=== PATIENT | female | born 1995 | race African-American/Black ===

== ENCOUNTER 2018-02-17 11:49 | Emergency (ER) | payer SELFPAY ==
[~2018-02-17 11:49] MED LIST: LURA40 PO; TRAZ50TA12 PO
[2018-02-17 11:52] VITALS: BP 111/59; PULSE 97; RESP 16; TEMP 98.3; O2SAT 99
--- NOTE | 2018-02-17 12:22 | PD ---
HPI Chief Complaint: Cold / Flu Symptoms Time Seen by Provider: 12:11 Travel History International Travel<30 days: No Contact w/Intl Traveler<30days: No Traveled to known affect area: No History of Present Illness HPI 22yo F with no PMH presents to the ED with c/o throat pain, left sided headache for 2 days. Also has some cough, nausea, vomiting. Feels warm but no fever. + Generalized weakness. Denies any chest pain, sob, abdominal pain, focal weakness or numbness. Everyone at home is sick. Took theraflu this morning with little relief. PFSH Past Medical History Psychiatric: Yes (depression) : 6 Para: 3 Social History Alcohol Use: No Tobacco Use: Yes Substance Use: No Allergies-Medications (Allergen,Severity, Reaction): Coded Allergies: No Known Allergies (Unverified , 10/16/16) Reported Meds & Prescriptions Reported Meds & Active Scripts Active No Active Prescriptions or Reported Medications Review of Systems Except as stated in HPI: all other systems reviewed are Neg Physical Exam Narrative GENERAL: 22yo F in mild distress. SKIN: Focused skin assessment warm/dry. HEAD: Atraumatic. Normocephalic. EYES: Pupils equal and round. No scleral icterus. No injection or drainage. ENT: Throat: Uvula midline. No exudate. +Left anterior cervical lymphadenopathy ttp. NECK: No nuchal rigidity. CARDIOVASCULAR: Regular rate and rhythm. No murmur appreciated. RESPIRATORY: No accessory muscle use. Clear to auscultation. Breath sounds equal bilaterally. GASTROINTESTINAL: Abdomen soft, non-tender, nondistended. No rebound tenderness or guarding. MUSCULOSKELETAL: No obvious deformities. No clubbing. No cyanosis. No edema. NEUROLOGICAL: Awake and alert. No obvious cranial nerve deficits. Motor grossly within normal limits in all extremities. Sensation equal. Normal speech. PSYCHIATRIC: Appropriate mood and affect; insight and judgment normal. Data Data Last Documented VS Vital Signs Date Time Temp Pulse Resp B/P (MAP) Pulse Ox O2 Delivery O2 Flow Rate FiO2 02/17/18 11:52 98.3 97 16 111/59 (76) 99 Orders Orders Ondansetron Odt (Zofran Odt) (02/17/18 12:30) Acetaminophen (Tylenol) (02/17/18 12:30) Influenzae A/B Antigen (02/17/18 12:17) Group A Rapid Strep Screen (02/17/18 12:17) Ed Urine Pregnancytest Poc (02/17/18 12:18) Strep Culture (Group A) (02/17/18 12:47) MDM Medical Decision Making Medical Screen Exam Complete: Yes Emergency Medical Condition: Yes Differential Diagnosis Flu like symptoms vs. viral syndrome vs. strep pharyngitis vs. migraine headache vs. tension headache Narrative Course 22yo F with flu like symptoms. Urine negative. Influenza negative. Group A strep negative. Pt given zofran and acetaminophen. Reevaluated and symptoms has improved. Pt is nontoxic appearing and requesting work up. No drooling. No change of voice. Tolerating PO. Return precautions given. Diagnosis Primary Impression: Viral syndrome Patient Instructions: General Instructions Departure Forms: Tests/Procedures, Work Release Enter return to work date: February 19, 2018 Additional Instructions: Please follow up with your primary care physician in 2-3 days. Return to the ED if symptoms worsen. Med/Other Pt SpecificInfo: Prescription(s) given Scripts Acetaminophen (Tylenol) 325 Mg Tab 650 MG PO Q6H Y for PAIN SCALE 1 TO 4, #20 TAB 0 Refills Prov: BaldemarKathleen DO 02/17/18 Disposition: 01 DISCHARGE HOME Condition: Stable Kathleen Mcdermott DO February 17, 2018 12:22
[2018-02-17] MEDS ORDERED: ONDANSETRON ODT 4 MG TAB PO ONE (12:30)
[2018-02-17] MEDS ORDERED: ACETAMINOPHEN 325 MG TAB PO ONE (12:30)
[2018-02-17] MEDS ORDERED: TYLE325T PO (14:25)
== END 2018-02-17 14:38 | disposition home or self-care (01) ==
LOC: NEPD 11:49
DX: B34.9 Viral infection, unspecified (principal); Z72.0 Tobacco use
CPT/HCPCS: 84703; 87081; 87804; 87880; 99283